=== PATIENT | female | born 1985 | race Caucasian/White ===

== ENCOUNTER 2020-06-27 11:46 | Emergency (ER) | payer OTHER ==
[~2020-06-27] VITALS: Ht 160 cm; Wt 74.8 kg
[~2020-06-27 11:46] MED LIST: ACETAMINOPHEN-1 EAC1 PO; HYDROCODONE-AP1 EAC6 PO; NOHOMEMEDICATIONS; ONDANSETRON HCL4 M2 PO; POTASSIUM20 PO
[2020-06-27] MEDS ORDERED: NORCO 5-325 TA1 EAC2 PO (13:13)
[2020-06-27 13:22] VITALS: BP 129/65
== END 2020-06-27 13:22 | disposition home or self-care (01) ==
LOC: M.ERS 11:46
DX: S93.491A Sprain of other ligament of right ankle, initial encounter (principal); Z98.51 Tubal ligation status; Z88.6 Allergy status to analgesic agent; X50.1XXA Overexertion from prolonged static or awkward postures, initial encounter; Y93.89 Activity, other specified; Y92.89 Other specified places as the place of occurrence of the external cause; Y99.8 Other external cause status